=== PATIENT | female | born 1980 | race African-American/Black ===

== ENCOUNTER 2024-10-06 19:05 | Observation (INO) | payer OTHER ==
[2024-10-06] MEDS: ASPIRIN 81 MG PO STA (19:44)
[2024-10-06] MEDS: NITROGLYCERIN OINT 1 INCH/GM PACKET TOPICAL STA (19:47)
--- NOTE | 2024-10-06 21:05 | ED ---
General Adult HPI - General Chief complaint: Chest Pain Stated complaint: chest pain Time Seen by Provider: 10/06/24 19:15 Source: patient, EMS, RN notes reviewed, old records reviewed Mode of arrival: EMS Limitations: no limitations - History of Present Illness Initial comments: This is a 44-year-old female has a past medical history significant for cardiac arrest and had a pacemaker defibrillator placed. Patient states that she did not ever have any stents placed. Patient comes in today after having been admitted to [facility] for alcohol abuse 2 days ago for chest discomfort. Patient states that felt like her chest was pounding so hard her heart was in the come out of her chest.. Patient denies having actual chest pain however [place] indicated that she was having chest discomfort at the facility. Patient denies any difficulty breathing or diaphoretic episode. Patient has any nausea vomiting. - Related Data Allergies Allergy/AdvReac Type Severity Reaction Status Date / Time ondansetron AdvReac Chest Pain Verified 10/06/24 19:21 Review of Systems ROS Statement: Those systems with pertinent positive or pertinent negative responses have been documented in the HPI. ROS Other: All systems not noted in ROS Statement are negative. Past Medical History Past Medical History: Hypertension Additional Past Medical History / Comment(s): Heart Failure, History of Any Multi-Drug Resistant Organisms: None Reported Past Surgical History: Cholecystectomy Additional Past Surgical History / Comment(s): Defibrillator July 01 Past Alcohol Use History: Abuse Past Drug Use History: None Reported General Exam - General Exam Comments Initial Comments: GENERAL: Patient is well-developed and well-nourished. Patient is nontoxic and well- hydrated and is in mild distress. ENT: Neck is soft and supple. No significant lymphadenopathy is noted. Oropharynx is clear. Moist mucous membranes. Neck has full range of motion without elic iting any pain. EYES: The sclera were anicteric and conjunctiva were pink and moist. Extraocular movements were intact and pupils were equal round and reactive to light. Eyelids were unremarkable. PULMONARY: Unlabored respirations. Good breath sounds bilaterally. No audible rales rhonchi or wheezing was noted. CARDIOVASCULAR: There is a regular rate and rhythm without any murmurs gallops or rubs. ABDOMEN: Soft and nontender with normal bowel sounds. SKIN: Skin is clear with no lesions or rashes and otherwise unremarkable. NEUROLOGIC: Patient is alert and oriented x3. Cranial nerves II through XII are grossly intact. Motor and sensory are also intact. Normal speech, volume and content. Symmetrical smile. MUSCULOSKELETAL: Normal extremities with adequate strength and full range of motion. LYMPHATICS: No significant lymphadenopathy is noted PSYCHIATRIC: Normal psychiatric evaluation. Limitations: no limitations Course Vital Signs 10/06/24 10/06/24 19:10 19:22 Temperature 97.9 F Pulse Rate 70 Pulse Rate [ 82 Right Sitting Radial] Respiratory 18 Rate Blood Pressure 125/98 Medical Decision Making - Medical Decision Making EKG is in the interpreted by myself. Patient is in a paced rhythm at 72 bpm [place] interval is 186 QRS is 86 QT interval is 379 QTc is 4 4. Patient's EKG shows no ST segment elevation. Was pt. sent in by a medical professional or institution (TINA Pan, IT OPERATIONS ANALYST, urgent care, hospital, or half-way...) When possible be specific @ -No Did you speak to anyone other than the patient for history (EMS, parent, family, police, friend...)? What history was obtained from this source @ -No Did you review nursing and triage notes (agree or disagree)? Why? @ -I reviewed and agree with nursing and triage notes Were old charts reviewed (outside hosp., previous admission, EMS record, old EKG, old radiological studies, urgent care reports/EKG's, half-way records)? Report findings @ -No old charts were reviewed Differential Diagnosis? @ -Differential Chest Pain: Stable Angina, Unstable Angina, STEMI, NSTEMI Aortic Dissection, Pneumothorax, Musculoskeletal, Esophageal Spasm GERD, Cholecystitis, Pancreatitis, Zoster, this is not meant to be an all-inclusive list. EKG interpreted by me (3pts min.). @ -As above X-rays interpreted by me (1pt min.). @ -Chest x-ray shows no acute abnormality CT interpreted by me (1pt min.). @ -No U/S interpreted by me (1pt. min.). @ -None done What testing was considered but not performed or refused? (CT, X-rays, U/S, labs)? Why? @ -None What meds were considered but not given or refused? Why? @ -None Did you discuss the management of the patient with other professionals (professionals i.e. Dr., PA, IT OPERATIONS ANALYST, lab, RT, psych nurse, social security specialist, patent lawyer, teacher, juvenile officer, lining caser)? Give summary @ -I spoke with Dr. Davidson and he agreed to admit the patient. Was smoking cessation discussed for >3mins.? @ -No Was critical care preformed (if so, how long)? @ -No Were there social determinants of health that impacted care today? How? (Homelessness, low income, unemployed, alcoholism, drug addiction, transportation, low edu. Level, literacy, decrease access to med. care, detention, rehab)? @ -No Was there de-escalation of care discussed even if they declined (Discuss DNR or withdrawal of care, Hospice)? DNR status @ -No What co-morbidities impacted this encounter? (DM, HTN, Smoking, COPD, CAD, Cancer, CVA, ARF, Chemo, Hep., AIDS, mental health diagnosis, sleep apnea, morbid obesity)? @ -None Was patient admitted / discharged? Hospital course, mention meds given and route, prescriptions, significant lab abnormalities, going to OR and other pertinent info. @ -Patient occasionally had a PVC while in the emergency department. Patient will be admitted to rule out coronary artery disease. Patient will be admitted to , With cardiology consult Undiagnosed new problem with uncertain prognosis? @ -No Drug Therapy requiring intensive monitoring for toxicity (Heparin, Nitro, Insulin, Cardizem)? @ -No Were any procedures done? @ -No Diagnosis/symptom? @ -Chest pain Acute, or Chronic, or Acute on Chronic? @ -Acute Uncomplicated (without systemic symptoms) or Complicated (systemic symptoms)? @ -Complicated Side effects of treatment? @ -No Exacerbation, Progression, or Severe Exacerbation? @ -No Poses a threat to life or bodily function? How? (Chest pain, USA, OR, pneumonia, PE, COPD, DKA, ARF, appy, cholecystitis, CVA, Diverticulitis, Homicidal, Suicidal, threat to staff... and all critical care pts) @ -Yes this could lead to an OR and endorgan dysfunction Disposition Clinical Impression: Chest pain Disposition: ADMITTED IP TO THIS HOSP Referrals: None,Stated [Primary Care Provider] - 1-2 days Time of Disposition: 21:05
[2024-10-06] MEDS ORDERED: NITROGLYCERIN SL TABS 0.4 MG TAB SUBLINGUAL PRN (21:07)
[2024-10-06 21:10] LABS: Basophils # (A) 0.03 10*3/uL (0.00-0.10); Basophils % (A) 0.7 %; Eosinophils # (A) 0.03 10*3/uL (0.04-0.35); Eosinophils % (A) 0.7 %; HCT 30.9 % (37.2-46.3); Lymphocytes # (A) 1.69 10*3/uL (0.90-5.00); Lymphocytes % (A) 40.6 %; MCH 35.5 pg (27.0-32.0); MCHC 35.6 g/dL (32.0-37.0); MCV 99.7 fL (80.0-97.0); Mean Platelet Volume 10.1 fL (9.5-12.2); Monocytes # (A) 0.61 10*3/uL (0.20-1.00); Monocytes % (A) 14.7 %; Neutrophils # (A) 1.79 10*3/uL (1.80-7.70); Neutrophils % (A) 43.1 %; Platelet Count 169 10*3/uL (140-440); RDW 13.2 % (11.5-14.5); WBC 4.16 10*3/uL (4.50-10.00)
[2024-10-06 21:17] LABS: ALT 21 U/L (4-34); AST 33 U/L (14-36); African American GFR (CKD) >90 (>60 ml/min/1.73 sqM); Albumin 4.3 g/dL (3.5-5.0); Alkaline Phosphatase 89 U/L (38-126); Anion Gap 9 mmol/L; Blood Urea Nitrogen 10 mg/dL (7-17); Calcium 9.2 mg/dL (8.4-10.2); Carbon Dioxide 25 mmol/L (22-30); Chloride 105 mmol/L (98-107); Glucose 114 mg/dL (74-99); Magnesium 1.5 mg/dL (1.6-2.3); Non-African American GFR(CKD) >90 (>60 ml/min/1.73 sqM); Potassium 3.1 mmol/L (3.5-5.1); Sodium 139 mmol/L (137-145); Total Bilirubin 0.3 mg/dL (0.2-1.3); Total Protein 7.7 g/dL (6.3-8.2)
[2024-10-06 21:26] LABS: NT-Pro-B-Type Natriuretic Pept 22 pg/mL
--- NOTE | 2024-10-06 22:50 | XR ---
EXAMINATION TYPE: XR chest 2V DATE OF EXAM: 10/06/2024 8:51 PM CLINICAL INDICATION:Female, 44 years old with history of Chest Pain; [facility] COMPARISON: None TECHNIQUE: XR chest 2V Frontal view of the chest. FINDINGS: Lungs/Pleura: There is no evidence of pleural effusion, focal consolidation, or pneumothorax. Pulmonary vascularity: Unremarkable. Heart/mediastinum: Cardiomediastinal silhouette is unremarkable. Two lead cardiac conduction device o verlying the left hemithorax with lead tips projecting over the right ventricle and right atrium. Musculoskeletal: No acute osseous pathology. IMPRESSION: No acute cardiopulmonary disease/process. [facility], , 10/06/2024 10:48 PM
[2024-10-06] MEDS: MAGNESIUM SULFATE-D5W PMX 1 GM in DEXTROSE/WATER 1 100ML.BAG IVPB ONE (23:06)
[2024-10-07 00:14] LABS: INR 0.9 (<1.2); Prothrombin Time 10.4 sec (10.0-12.5)
[2024-10-07 00:16] LABS: Partial Thromboplastin Time 20.9 sec (22.0-30.0)
[2024-10-07] MEDS: NITROGLYCERIN OINT 1 INCH/GM PACKET TOPICAL SCH (01:09)
[2024-10-07] MEDS: KETOROLAC 15 MG/ML 1 ML VIAL IVP PRN (07:02)
[2024-10-07 08:25] LABS: Chol/HDL Ratio 3.27 Ratio; LDL Cholesterol,Calculated 135.2 mg/dL (0.0-131.0)
[2024-10-07] MEDS: ASPIRIN 325 MG TAB PO SCH (08:39)
[2024-10-07] MEDS: LOSARTAN 25 MG TAB PO SCH (10:30)
--- NOTE | 2024-10-07 10:38 | P.CRDCN ---
History of Present Illness Consult date: 10/07/24 Consult reason: chest pain History of present illness: This is a 44-year-old female patient follows with a instructor bridge at [facility]. She states she has a past medical history of hypertension, a cardiac arrest several times at the end of 2023. She apparently underwent cardiac catheterization that showed no coronary artery disease. She did have a LifeVest placed for a week heart and AICD implantation 07/01 of this year. We h ave been asked to evaluate the patient for chest pain. Patient is currently at [facility] for alcohol abuse. Patient states that she felt some pounding in her chest and she thinks it is related to Entresto. She states she has not been taking the Entresto until she arrived at [facility] and it is on her home list. She thinks the palpitations and pounding started after she took the Entresto. She has not received a dose here since she arrived to the hospital and she is not feeling the palpitations or pounding anymore. She denies having any chest pain no chest pressure no chest tightness. She states she has some dyspnea on exertion all the time. She denies PND. She denies asthma or COPD no blood in her urine or stool. She denies history of stroke or seizure. Blood pressure 122/72, heart rate 78, pulse ox 99% on room air. Patient is seen today in the emergency center waiting for a bed on the observation unit. -EKG: Paced rhythm -Chest x-ray: No acute process. -Laboratory studies: WBC 4.1, hemoglobin 11. Potassium 3.1, creatinine 0.53. Troponin negative x 3. Triglycerides 140, cholesterol 235, LDL 135, HDL 71. -Home cardiac medications: Entresto 24-26 mg twice daily. Review Of Systems: At the time of my exam: CONSTITUTIONAL: Denies fever or chills. HEENT: Denies blurred vision, vision changes, or eye pain. Denies hemoptysis CARDIOVASCULAR: Denies chest pain. Denies orthopnea. Denies PND. Denies palpitations RESPIRATORY: Denies shortness of breath. GASTROINTESTINAL: Denies abdominal pain. Denies nausea or vomiting. HEMATOLOGIC: Denies bleeding disorders. GENITOURINARY: Denies any blood in urine. SKIN: Denies puritis. Denies rash. Physical examination: Gen: This is a 44-year-old black female in no acute distress VS: reviewed HEENT: Head is atraumatic, normocephalic. Pupils equal, round. Sclerae is anicteric. NECK: Supple. No JVD. LUNGS: Clear to auscultation. No wheezes or rhonchi. No intercostal retractions. HEART: Regular rate and rhythm. No murmur. ABDOMEN: Soft No tenderness. EXTREMITIES: No pedal edema. No calf tenderness. NEUROLOGICAL: Patient is awake, alert and oriented x3. Assessment: No chest pain Palpitations Hypertension History of cardiac arrest Cardiomyopathy nonischemic status post AICD Hypertension Alcohol abuse and rehabilitation at [facility] Plan: Discontinue Nitropaste Discontinue Entresto Start patient on losartan 25 mg daily [facility] from [facility] Obtain 2-D echocardiogram and Doppler study to assess cardiac structure and function If workup is unremarkable, patient will be cleared for discharge back to [facility] and she will follow-up with her primary instructor bridge in [place]. Thank you kindly for this consultation. Nurse practitioner note has been reviewed, I agree with documented findings and plan of care. Patient was seen and examined. Past Medical History Past Medical History: Hypertension Additional Past Medical History / Comment(s): Heart Failure, History of Any Multi-Drug Resistant Organisms: None Reported Past Surgical History: Cholecystectomy Additional Past Surgical History / Comment(s): Defibrillator July 01 Past Alcohol Use History: Abuse Past Drug Use History: None Reported Medications and Allergies Home Medications Medication Instructions Recorded Confirmed Type Acetaminophen [Tylenol] 650 mg PO Q4H PRN 10/07/24 10/07/24 History Calcium Phos/D3/Magnesium/Zinc 1 tab PO TID PRN 10/07/24 10/07/24 History [Zkiaybo-Fge-Uuod-Vitamin D3] Diclofenac Sodium [Diclofenac 1 applic TOPICAL QID PRN 10/07/24 10/07/24 History Sodium 1%] Fluticasone Nasal [place] [Flonase 1 spray EA NOSTRIL DAILY 10/07/24 10/07/24 History Nasal [place]] Loperamide HCl [Imodium A-D] 4 mg PO QID PRN 10/07/24 10/07/24 History Mag Hydrox/Aluminum Hyd/Simeth 30 ml PO Q4H PRN 10/07/24 10/07/24 History [Mylanta Maximum Strength Liq] Multivitamins, Thera [Multivitamin 1 tab PO DAILY 10/07/24 10/07/24 History (formulary)] Prochlorperazine [Compazine] 10 mg PO Q8H PRN 10/07/24 10/07/24 History Sacubitril/Valsartan [Entresto 24 1 tab PO BID 10/07/24 10/07/24 History mg-26 mg Tablet] Thiamine [Vitamin B-1] 100 mg PO DAILY 10/07/24 10/07/24 History Allergies Allergy/AdvReac Type Severity Reaction Status Date / Time ondansetron AdvReac Chest Pain Verified 10/07/24 08:14 Physical Exam Vitals: Vital Signs Temp Pulse Pulse Resp BP Pulse Ox 10/07/24 07:08 97.8 F 78 18 122/72 99 10/06/24 23:13 80 18 104/73 96 10/06/24 19:22 82 10/06/24 19:10 97.9 F 70 18 125/98 Intake and Output 10/06/24 10/07/24 10/07/24 22:59 06:59 14:59 Other: Weight 65.771 kg Results 10/06/24 19:32 10/06/24 19:32 Cardiac Enzymes 10/06/24 10/06/24 10/06/24 Range/Units 19:32 19:32 22:31 AST 33 (14-36) U/L Troponin I <0.012 <0.012 (0.000-0.034) ng/mL 10/07/24 Range/Units 01:39 AST (14-36) U/L Troponin I <0.012 (0.000-0.034) ng/mL Coagulation 10/06/24 Range/Units 19:32 PT 10.4 (10.0-12.5) sec APTT 20.9 L (22.0-30.0) sec Lipids 10/06/24 Range/Units 19:32 Triglycerides 140.00 (0.00-149.00) mg/dL Cholesterol 235.00 H (0.00-200.00) mg/dL HDL Cholesterol 71.80 H (40.00-60.00) mg/dL Cholesterol/HDL Ratio 3.27 Ratio CBC 10/06/24 Range/Units 19:32 WBC 4.16 L (4.50-10.00) 10*3/uL RBC 3.10 L (4.10-5.20) 10*6/uL Hgb 11.0 L (12.0-15.0) g/dL Hct 30.9 L (37.2-46.3) % Plt Count 169 (140-440) 10*3/uL Comprehensive Metabolic Panel 10/06/24 Range/Units 19:32 Sodium 139 (137-145) mmol/L Potassium 3.1 L (3.5-5.1) mmol/L Chloride 105 (98-107) mmol/L Carbon Dioxide 25 (22-30) mmol/L BUN 10 (7-17) mg/dL Creatinine 0.53 (0.52-1.04) mg/dL Glucose 114 H (74-99) mg/dL Calcium 9.2 (8.4-10.2) mg/dL AST 33 (14-36) U/L ALT 21 (4-34) U/L Alkaline Phosphatase 89 (38-126) U/L Total Protein 7.7 (6.3-8.2) g/dL Albumin 4.3 (3.5-5.0) g/dL Current Medications Generic Name Dose Route Start Last Admin Trade Name Hiq PRN Reason Stop Dose Admin Aspirin 325 mg 10/07/24 09:00 10/07/24 08:39 Aspirin 325 Mg Tab PO 325 mg DAILY NEYMAR Administration Ketorolac Tromethamine 15 mg 10/07/24 04:29 10/07/24 07:02 Ketorolac 15 Mg/Ml 1 Ml Vial IVP 10/12/24 04:29 15 mg Q6HR PRN Administration pain Nitroglycerin 0.4 mg 10/06/24 21:07 Nitroglycerin Sl Tabs 0.4 Mg Tab SUBLINGUAL Q5M PRN Chest Pain Nitroglycerin 1 inch 10/07/24 00:00 10/07/24 06:55 Nitroglycerin Oint 1 Inch/Gm Packet TOPICAL 1 inch Q6HR NEYMAR Administration Intake and Output 10/06/24 10/07/24 10/07/24 22:59 06:59 14:59 Other: Weight 65.771 kg 10/06/24 19:32 10/06/24 19:32
--- NOTE | 2024-10-07 13:09 | P.HPIM ---
History of Present Illness 44-year-old female came with complaints of palpitations and mild chest pressure- like sensation. Patient had history of severe cardiomyopathy EF of around 30% patient has an AICD in place. Patient had history of cardiac arrest in the past. Patient believes Entresto is causing it whenever she takes Entresto patient has sensations of palpitation pounding on the chest. Since stopping Entresto patient does not feel any of the palpitations anymore. Patient was eval by cardiology recommending pacemaker interrogation, Entresto was d iscontinued instead patient was started on losartan. After interrogation of the pacemaker depending on the results patient probably can be discharged. REVIEW OF SYSTEMS: All other systems are negative except those mentioned in the HPI PHYSICAL EXAMINATION: GENERAL: The patient is alert and oriented x3, not in any acute distress. Well developed, well nourished. HEENT: Pupils are round and equally reacting to light. EOMI. No scleral icterus. No conjunctival pallor. Normocephalic, atraumatic. No pharyngeal erythema. No thyromegaly. CARDIOVASCULAR: S1 and S2 present. No murmurs, rubs, or gallops. PULMONARY: Chest is clear to auscultation, no wheezing or crackles. ABDOMEN: Soft, nontender, nondistended, normoactive bowel sounds. No palpable organomegaly. MUSCULOSKELETAL: No joint swelling or deformity. EXTREMITIES: No cyanosis, clubbing, or pedal edema. NEUROLOGICAL: Gross neurological examination did not reveal any focal deficits. SKIN: No rashes. Assessment and plan -Palpitations: Etiology is not clear pacemaker interrogation obtain medical records from "[facility], hold off Entresto patient was started on losartan - Cardiomyopathy nonischemic status post AICD patient is euvolemic at this time will not require any diuretics - Hypertension - Alcohol abuse for which patient is presently in [facility] rehabilitation patient will return there after clearance by cardiology - Hypokalemia and hypomagnesemia both of which will be replaced DVT prophylaxis: Past Medical History Past Medical History: Hypertension Additional Past Medical History / Comment(s): Heart Failure, History of Any Multi-Drug Resistant Organisms: None Reported Past Surgical History: Cholecystectomy Additional Past Surgical History / Comment(s): Defibrillator July 01 Past Alcohol Use History: Abuse Past Drug Use History: None Reported Medications and Allergies Home Medications Medication Instructions Recorded Confirmed Type Acetaminophen [Tylenol] 650 mg PO Q4H PRN 10/07/24 10/07/24 History Calcium Phos/D3/Magnesium/Zinc 1 tab PO TID PRN 10/07/24 10/07/24 History [Qlhqtii-Nol-Rjse-Vitamin D3] Diclofenac Sodium [Diclofenac 1 applic TOPICAL QID PRN 10/07/24 10/07/24 History Sodium 1%] Fluticasone Nasal [place] [Flonase 1 spray EA NOSTRIL DAILY 10/07/24 10/07/24 History Nasal [place]] Loperamide HCl [Imodium A-D] 4 mg PO QID PRN 10/07/24 10/07/24 History Losartan [Cozaar] 25 mg PO DAILY #30 tab 10/07/24 Rx Mag Hydrox/Aluminum Hyd/Simeth 30 ml PO Q4H PRN 10/07/24 10/07/24 History [Mylanta Maximum Strength Liq] Multivitamins, Thera [Multivitamin 1 tab PO DAILY 10/07/24 10/07/24 History (formulary)] Prochlorperazine [Compazine] 10 mg PO Q8H PRN 10/07/24 10/07/24 History Thiamine [Vitamin B-1] 100 mg PO DAILY 10/07/24 10/07/24 History Allergies Allergy/AdvReac Type Severity Reaction Status Date / Time ondansetron AdvReac Chest Pain Verified 10/07/24 08:14 Physical Exam Vitals: Vital Signs Temp Pulse Pulse Resp BP Pulse Ox 10/07/24 09:58 119/90 10/07/24 07:08 97.8 F 78 18 122/72 99 10/06/24 23:13 80 18 104/73 96 10/06/24 19:22 82 10/06/24 19:10 97.9 F 70 18 125/98 Intake and Output 10/06/24 10/07/24 10/07/24 22:59 06:59 14:59 Other: Weight 65.771 kg Results CBC & Chem 7: 10/06/24 19:32 10/06/24 19:32 Labs: Abnormal Lab Results - Last 24 Hours (Table) 10/06/24 10/06/24 10/06/24 Range/Units 19:32 19:32 19:32 WBC 4.16 L (4.50-10.00) 10*3/uL RBC 3.10 L (4.10-5.20) 10*6/uL Hgb 11.0 L (12.0-15.0) g/dL Hct 30.9 L (37.2-46.3) % MCV 99.7 H (80.0-97.0) fL MCH 35.5 H (27.0-32.0) pg Neutrophils # 1.79 L (1.80-7.70) 10*3/uL Eosinophils # 0.03 L (0.04-0.35) 10*3/uL APTT 20.9 L (22.0-30.0) sec Potassium 3.1 L (3.5-5.1) mmol/L Glucose 114 H (74-99) mg/dL Magnesium 1.5 L (1.6-2.3) mg/dL Cholesterol (0.00-200.00) mg/dL LDL Cholesterol, Calc (0.0-131.0) mg/dL HDL Cholesterol (40.00-60.00) mg/dL 10/06/24 Range/Units 19:32 WBC (4.50-10.00) 10*3/uL RBC (4.10-5.20) 10*6/uL Hgb (12.0-15.0) g/dL Hct (37.2-46.3) % MCV (80.0-97.0) fL MCH (27.0-32.0) pg Neutrophils # (1.80-7.70) 10*3/uL Eosinophils # (0.04-0.35) 10*3/uL APTT (22.0-30.0) sec Potassium (3.5-5.1) mmol/L Glucose (74-99) mg/dL Magnesium (1.6-2.3) mg/dL Cholesterol 235.00 H (0.00-200.00) mg/dL LDL Cholesterol, Calc 135.2 H (0.0-131.0) mg/dL HDL Cholesterol 71.80 H (40.00-60.00) mg/dL
--- NOTE | 2024-10-07 13:10 | P.DS ---
Providers Date of admission: 10/06/24 21:09 Attending physician: Shanti Davidson Consults: 10/06/24 21:07 Consult Physician Urgent Consulting Provider: [facility] Consult Reason/Comments: Chest pain Do you want consulting provider notified?: Yes Primary care physician: Stated None Hospital Course: 44-year-old female came with complaints of palpitations and mild chest pressure- like sensation. Patient had history of severe cardiomyopathy EF of around 30% patient has an AICD in place. Patient had history of cardiac arrest in the past. Patient believes Entresto is causing it whenever she takes Entresto patient has sensations of palpitation pounding on the chest. Since stopping Entresto patient does not feel any of the palpitations anymore. Patient was eval by cardiology recommending pacemaker interrogation, Entresto was discontinued instead patient was started on losartan. After interrogation of the pacemaker depending on the results patient probably can be discharged. REVIEW OF SYSTEMS: All other systems are negative except those mentioned in the HPI PHYSICAL EXAMINATION: GENERAL: The patient is alert and oriented x3, not in any acute distress. Well developed, well nourished. HEENT: Pupils are round and equally reacting to light. EOMI. No scleral icterus. No conjunctival pallor. Normocephalic, atraumatic. No pharyngeal erythema. No thyromegaly. CARDIOVASCULAR: S1 and S2 present. No murmurs, rubs, or gallops. PULMONARY: Chest is clear to auscultation, no wheezing or crackles. ABDOMEN: Soft, nontender, nondistended, normoactive bowel sounds. No palpable organomegaly. MUSCULOSKELETAL: No joint swelling or deformity. EXTREMITIES: No cyanosis, clubbing, or pedal edema. NEUROLOGICAL: Gross neurological examination did not reveal any focal deficits. SKIN: No rashes. Assessment and plan -Palpitations: Etiology is not clear pacemaker interrogation obtain medical records from "[facility], hold off Entresto patient was started on losar mares - Cardiomyopathy nonischemic status post AICD patient is euvolemic at this time will not require any diuretics - Hypertension - Alcohol abuse for which patient is presently in [facility] patient will return there after clearance by cardiology - Hypokalemia and hypomagnesemia both of which will be replaced DVT prophylaxis: Plan - Discharge Summary New Discharge Prescriptions: New Losartan [Cozaar] 25 mg PO DAILY #30 tab Continue Thiamine [Vitamin B-1] 100 mg PO DAILY Multivitamins, Thera [Multivitamin (formulary)] 1 tab PO DAILY Mag Hydrox/Aluminum Hyd/Simeth [Mylanta Maximum Strength Liq] 30 ml PO Q4H PRN PRN Reason: Gi Upset Loperamide HCl [Imodium A-D] 4 mg PO QID PRN PRN Reason: Loose Stool Calcium Phos/D3/Magnesium/Zinc [Ttadnaq-Ewg-Mucb-Vitamin D3] 1 tab PO TID PRN PRN Reason: SUPPLEMENT Fluticasone Nasal [place] [Flonase Nasal [place]] 1 spray EA NOSTRIL DAILY Diclofenac Sodium [Diclofenac Sodium 1%] 1 applic TOPICAL QID PRN PRN Reason: PAINFUL AREAS Prochlorperazine [Compazine] 10 mg PO Q8H PRN PRN Reason: Nausea Acetaminophen [Tylenol] 650 mg PO Q4H PRN PRN Reason: Fever And/ Or Pain Discontinued Sacubitril/Valsartan [Entresto 24 mg-26 mg Tablet] 1 tab PO BID Discharge Medication List Acetaminophen [Tylenol] 650 mg PO Q4H PRN 10/07/24 [History] Calcium Phos/D3/Magnesium/Zinc [[place]-Key-Pnjs-Vitamin D3] 1 tab PO TID PRN 10/07/24 [History] Diclofenac Sodium [Diclofenac Sodium 1%] 1 applic TOPICAL QID PRN 10/07/24 [History] Fluticasone Nasal [place] [Flonase Nasal [place]] 1 spray EA NOSTRIL DAILY 10/07/24 [History] Loperamide HCl [Imodium A-D] 4 mg PO QID PRN 10/07/24 [History] Losartan [Cozaar] 25 mg PO DAILY #30 tab 10/07/24 [Rx] Mag Hydrox/Aluminum Hyd/Simeth [Mylanta Maximum Strength Liq] 30 ml PO Q4H PRN 10/07/24 [History] Multivitamins, Thera [Multivitamin (formulary)] 1 tab PO DAILY 10/07/24 [History] Prochlorperazine [Compazine] 10 mg PO Q8H PRN 10/07/24 [History] Thiamine [Vitamin B-1] 100 mg PO DAILY 10/07/24 [History] Follow up Appointment(s)/Referral(s): None,Stated [Primary Care Provider] - 1-2 days
[2024-10-07] MEDS: POTASSIUM CHLORIDE ER 20 MEQ TAB.ER PO STA (13:53)
[2024-10-07] MEDS: MAGNESIUM SULFATE-D5W PMX 1 GM in DEXTROSE/WATER 1 100ML.BAG IVPB SCH (13:55)
[2024-10-07] MEDS ORDERED: Magnesium Replacement Protocol 1 EACH MISC MISCELLANE PRN (15:07)
--- NOTE | 2024-10-07 18:07 | CA ---
Transthoracic Echo Report Name: Flor Rg Age: 44 Gender: F : 1980 Exam Date: 10/07/2024 14:20 Exam Location: [facility] Ht (in): 63 Wt (lb): 145 Ordering Physician: Gem Tam Attending/Referring Phys: [id number], Yonatan Manager Shell Rupali De Paz, [place] Procedure CPT: Indications: LVF, palpitations Cardiac Hx: Technical Quality: Good Contrast 1: Total Dose (mL): Contrast 2: Total Dose (mL): MEASUREMENTS (Male / Female) Normal Values 2D ECHO LV Diastolic Diameter PLAX 4.6 cm 4.2 - 5.9 / 3.9 - 5.3 cm LV Systolic Diameter PLAX 3.5 cm IVS Diastolic Thickness 1.0 cm 0.6 - 1.0 / 0.6 - 0.9 cm LVPW Diastolic Thickness 0.9 cm 0.6 - 1.0 / 0.6 - 0.9 cm LV Relative Wall Thickness 0.4 RV Internal Dim ED PLAX 2.1 cm LA Systolic Diameter LX 3.4 cm 3.0 - 4.0 / 2.7 - 3.8 cm LV Diastolic Volume MOD BP 79.5 cm??? 67 - 155 / 56 - 104 cm??? LV Systolic Volume MOD BP 43.5 cm??? / 19 - 49 cm??? LV Ejection Fraction MOD BP 45.3 % >= 55 % LV Cardiac Index MOD BP 1588.8 cm???/min???m??? LV Diastolic Volume MOD 4C 79.7 cm??? LV Systolic Volume MOD 4C 49.2 cm??? LV Ejection Fraction MOD 4C 38.3 % LV Cardiac Index MOD 4C 1346.6 cm???/min???m??? LV Diastolic Length 4C 6.9 cm LV Systolic Length 4C 6.2 cm LV Diastolic Volume MOD 2C 72.4 cm??? LV Systolic Volume MOD 2C 41.7 cm??? LV Ejection Fraction MOD 2C 42.5 % LV Cardiac Index MOD 2C 1355.9 cm???/min???m??? LV Diastolic Length 2C 7.7 cm LV Systolic Length 2C 6.2 cm LA Volume 38.8 cm??? - / 22 - 52 cm??? LA Volume Index 22.5 cm???/m??? 16 - 28 cm???/m??? M-MODE Aortic Root Diameter MM 2.9 cm LA Systolic Diameter MM 3.4 cm LA Ao Ratio MM 1.2 AV Cusp Separation MM 2.2 cm DOPPLER AI Peak Velocity 411.5 cm/s AI Peak Gradient 67.7 mmHg AI Pressure Half Time 699.8 ms MV Area PHT 3.0 cm??? Mitral E Point Velocity 63.5 cm/s Mitral A Point Velocity 58.6 cm/s Mitral E to A Ratio 1.1 MV Deceleration Time 249.4 ms TR Peak Velocity 213.1 cm/s TR Peak Gradient 18.2 mmHg FINDINGS Left Ventricle Left ventricular ejection fraction is estimated at 40-45%.left ventricular cavity size normal. Moderate global hypokinesis Right Ventricle Normal right ventricular size and function. Right ventricular systolic pressure within normal limits. Right Atrium Normal right atrial size. Catheter/pacemaker wire in the right atrial cavity. Left Atrium Normal left atrial size. Mitral Valve Structurally normal mitral valve. moderate mitral regurgitation. Aortic Valve Trileaflet aortic valve. Mild aortic regurgitation. No aortic stenosis. Tricuspid Valve Structurally normal tricuspid valve. Mild tricuspid regurgitation. No tricuspid stenosis. Pulmonic Valve Structurally normal pulmonic valve. No pulmonic stenosis. Trace pulmonic regurgitation. Pericardium No pericardial or pleural effusion. Aorta Normal size aortic root and proximal ascending aorta. CONCLUSIONS 1. Moderate global hypokinesis of the left ventricle 2. A wire is noted in the right ventricle 3. Moderate mitral with mild tricuspid regurgitation 4. Mild aortic regurgitation Previewed by: Dr. Sheryl Haney MD (Electronically Signed) Final Date: 07 October 2024 18:06
[2024-10-08 00:27] VITALS: BP 124/67; PULSE 76; RESP 20; TEMP 98
== END 2024-10-07 23:15 | disposition home or self-care (01) ==
LOC: EC 19:05 → 6NMEDSUR 21:09
PROVIDERS: ADMIT Hospitalist; ATTEND Hospitalist
DX: R00.2 Palpitations (principal); I42.8 Other cardiomyopathies; I11.0 Hypertensive heart disease with heart failure; I50.9 Heart failure, unspecified; E87.6 Hypokalemia; E83.42 Hypomagnesemia; T46.5X6A Underdosing of other antihypertensive drugs, initial encounter; Z91.128 Patient's intentional underdosing of medication regimen for other reason; E87.70 Fluid overload, unspecified; R07.89 Other chest pain; I49.3 Ventricular premature depolarization; F10.10 Alcohol abuse, uncomplicated; Z86.74 Personal history of sudden cardiac arrest; Z88.8 Allergy status to other drugs, medicaments and biological substances; Z95.810 Presence of automatic (implantable) cardiac defibrillator
CPT/HCPCS: 96365; 96366; 96375; 99285; 36415; 93005; 93306; 83880; 80061; 80053; 83735; 84484 ×2; 85025; 85610; 85730; 71046; G0378 ×2; J3475 ×2; J1885